=== PATIENT | male | born 1965 | race Caucasian/White ===

== ENCOUNTER → 2024-08-23 | Outpatient (CLI) | payer BC, SELFPAY ==
--- NOTE | 2024-08-23 08:15 | XR_ITS ---
Examination: MRI lumbar spine without contrast Date and time of exam: August 23, 2024 0827 hours INDICATIONS: Low back pain 2 years radiating down the right leg Technique: Multiple MRI axial and sagittal sections lumbar spine. Sagittal T2-weighted images, TR 3500, TE 118 T1 weighted transverse sections, TR 688 T8.5, T2-weighted sagittal sections T1 weighted sagittal sections TR 621, TE 30 T2 axial sections, TR 4, 190, TE 84. Findings: Straightening normal lumbar lumbar lordosis Advanced disc narrowing L5-S1 No lumbar fracture Reactive bony endplate change L5-S1 No spondylolisthesis L5-S1 6 mm central paracentral disc bulge contiguous with the right and left S1 nerve roots and producing moderate right L5 ganglionic compression L4-L5 2 mm central lumbar disc bulge More cephalad levels unremarkable IMPRESSION: L5-S1 6 mm central paracentral disc bulge contiguous with the right and left S1 nerve roots and producing moderate right L5 ganglionic compression L4-L5 2 mm central lumbar disc bulge
== END | disposition home or self-care (01) ==
PROVIDERS: Referring Provider Psychiatry & Neurology Neurology; Visit Provider Psychiatry & Neurology Neurology
DX: G95.20 Unspecified cord compression (principal); M51.360 Other intervertebral disc degeneration, lumbar region with discogenic back pain only; M51.370 Other intervertebral disc degeneration, lumbosacral region with discogenic back pain only
CPT/HCPCS: 72148